=== PATIENT | male | born 1995 | race American Indian/Alaskan Native ===

== ENCOUNTER 2016-10-12 08:11 | Emergency (ER) | payer BC, OTHER ==
--- NOTE | 2016-10-12 08:50 | C.PDOC ---
History Of Present Illness 20 y/o male presents to the ED with complains of body aches, sore throat, fever and runny nose since yesterday. Pt took Tylenol yesterday with mild relief. He denies sick contacts, cough, chest pain, SOB, abdominal pain, nausea, vomiting, diarrhea, dysuria. Time Seen by Provider: 10/12/16 08:46 Chief Complaint (Nursing): Fever History Per: Patient History/Exam Limitations: no limitations Onset/Duration Of Symptoms: Days (1) Current Symptoms Are (Timing): Still Present Location Of Pain: Throat, Diffuse Myalgias Sick Contacts (Context): None Associated Symptoms: Fever, Sore Throat. denies: Nausea, Vomiting, Diarrhea Severity: Mild Recent travel outside of the [place]: No Past Medical History Reviewed: Historical Data, Nursing Documentation, Vital Signs Vital Signs: Last Vital Signs Temp 98.8 F 10/12/16 12:27 Pulse 98 H 10/12/16 12:27 Resp 18 10/12/16 12:27 BP 106/70 10/12/16 12:27 Pulse Ox 100 10/12/16 12:27 - Medical History PMH: No Chronic Diseases - [facility] Procedures IMMOBILIZ/WOUND ATTN NEC (03/18/13) TENDON SHEATH SUTURE (03/29/13) Family History: States: No Known Family Hx - Social History Hx Tobacco Use: No Hx Alcohol Use: No Hx Substance Use: No - Immunization History Hx Tetanus Toxoid Vaccination: Yes Hx Influenza Vaccination: No Hx Pneumococcal Vaccination: No Review Of Systems Except As Marked, All Systems Reviewed And Found Negative. Constitutional: Positive for: Fever, Other (body aches) ENT: Positive for: Nose Discharge, Throat Pain. Negative for: Ear Pain Cardiovascular: Negative for: Chest Pain, Palpitations Respiratory: Negative for: Cough, Shortness of Breath Gastrointestinal: Negative for: Nausea, Vomiting, Abdominal Pain, Diarrhea Genitourinary: Negative for: Dysuria, Hematuria Physical Exam - Physical Exam Appears: Well, Non-toxic, No Acute Distress Skin: Warm, Dry, No Rash Head: Normacephalic Ear(s): Bilateral: Normal Nose: Normal Oral Mucosa: Moist Throat: Erythema (pharyngeal), No Drooling, Other (no tonsillar swelling or exudates) Neck: Normal, Normal ROM, Supple, Other (no meningismus) Chest: Symmetrical Cardiovascular: Rhythm Regular (tachycardic), No Murmur Respiratory: Normal Breath Sounds, No Accessory Muscle Use, No Rales, No Rhonchi , No Wheezing Gastrointestinal/Abdominal: Normal Exam, Bowel Sounds, Soft, No Tenderness Back: Normal Inspection, No CVA Tenderness Extremity: Bilateral: Atraumatic Neurological/Psych: Oriented x3 ED Course And Treatment O2 Sat by Pulse Oximetry: 97 (on room air) Pulse Ox Interpretation: Normal Progress Note: Plan: Influenza, strep swabs ordered and reviewed. Patient given PO Naprosyn. Reevaluation Time: 12:00 Reassessment Condition: Improved (Patient reassessed, states he is feeling better. Fever has dropped appropriately and vitals have improved. Swabs (-) - suspect viral syndrome. Patient given Rxs for Sudafed, Naprosyn and Chloraseptic. He was instructed to follow up with PMD in 1-2 days, and understands he should return to ED if symptoms worsen.) Disposition Counseled Patient/Family Regarding: Diagnosis, Need For Followup, Rx Given - Disposition Referrals: [facility] [Outside] Disposition: HOME/ ROUTINE Disposition Time: 12:00 Condition: STABLE Additional Instructions: FOLLOW UP WITH YOUR DOCTOR IN 1-2 DAYS USE MEDICATIONS DIRECTED DRINK PLENTY OF FLUIDS RETURN TO ER IF SYMPTOMS WORSEN Prescriptions: Phenol/Glycerin [Chloraseptic [place]] 1 spray MM Q6 PRN #1 spray PRN Reason: THROAT PAIN Naproxen [Naprosyn Tab] 375 mg PO BID PRN #25 tab PRN Reason: pain Pseudoephedrine [Sudafed] 60 mg PO Q6 PRN #12 tab PRN Reason: Nasal Congestion Instructions: Viral Syndrome (ED) Forms: Work Excuse Print Language: UPPER SORBIAN - Clinical Impression Clinical Impression: Fever, Viral syndrome - Scribe Statement The provider has reviewed the documentation as recorded by the Liss Baires Provider Attestation: All medical record entries made by the Liss were at my direction and personally dictated by me. I have reviewed the chart and agree that the record accurately reflects my personal performance of the history, physical exam, medical decision making, and the department course for this patient. I have also personally directed, reviewed, and agree with the discharge instructions and disposition.
[2016-10-12] MEDS ORDERED: Naproxen 550 mg Tab PO STA (09:13)
[2016-10-12] MEDS ORDERED: Naproxen 550 mg Tab PO ONE (11:04)
[2016-10-12 12:28] VITALS: BP 106/70; PULSE 98; RESP 18; TEMP 98.8
[2016-10-23 08:57] VITALS: O2SAT 97
== END 2016-10-12 12:28 | disposition home or self-care (01) ==
LOC: C.ER 08:11
DX: B34.9 Viral infection, unspecified (principal); R50.9 Fever, unspecified